=== PATIENT | female | born 1930 | race Caucasian/White ===

== ENCOUNTER → 2017-04-15 | Outpatient (CLI) | payer MEDICARE | LOC: HEART 5 13:17 | DX: I48.91 Unspecified atrial fibrillation (principal); I20.9 Angina pectoris, unspecified; I10 Essential (primary) hypertension; I27.2 Other secondary pulmonary hypertension; I08.1 Rheumatic disorders of both mitral and tricuspid valves; I51.9 Heart disease, unspecified | CPT/HCPCS: 93306 ==